=== PATIENT | female | born 1975 | race Hispanic/Latino ===

== ENCOUNTER 2020-11-27 22:50 | Emergency (ER) | payer OTHER ==
[~2020-11-27] VITALS: Ht 154.9 cm; Wt 79.2 kg
[~2020-11-27 22:50] MED LIST: ADV500INH INH; ASPE4PAD TOP; MACR100C43 PO; METF-838 PO; NAPR-837 PO; PROAAER10 INH; PYRI1TAB5 PO; SING10TA32 PO
[2020-11-27 22:51] VITALS: BP 127/66
== END 2020-11-27 22:54 | disposition left against medical advice (07) ==
LOC: M ED 22:50
DX: Z53.21 Procedure and treatment not carried out due to patient leaving prior to being seen by health care provider (principal)

== ENCOUNTER 2020-12-13 01:42 | Emergency (ER) | payer OTHER, SELFPAY ==
[~2020-12-13] VITALS: Ht 157.5 cm; Wt 75.0 kg
[2020-12-13 01:44] VITALS: BP 127/70
[2020-12-13] MEDS ORDERED: ATROVENT INH (01:55)
[2020-12-13] MEDS ORDERED: ALBUTEROL INH (01:55)
== END 2020-12-13 02:27 | disposition left against medical advice (07) ==
LOC: M ED 01:42
DX: Z53.21 Procedure and treatment not carried out due to patient leaving prior to being seen by health care provider (principal)

== ENCOUNTER → 2021-11-28 | Outpatient (CLI) | payer OTHER ==
[~2021-11-28] MED LIST changes: +ALBUTEROL INH; +ATROVENT INH
== END ==
LOC: M WHC 06:52
PROVIDERS: ATTEND Nurse Practitioner Family
DX: Z12.31 Encounter for screening mammogram for malignant neoplasm of breast (principal); R92.2 Inconclusive mammogram

== ENCOUNTER → 2021-12-11 | Outpatient (CLI) | payer OTHER | LOC: M WHC 07:20 | PROVIDERS: ATTEND Family Medicine | DX: N63.10 Unspecified lump in the right breast, unspecified quadrant (principal); R92.8 Other abnormal and inconclusive findings on diagnostic imaging of breast | CPT/HCPCS: 76642; 77065; G0279 ==

== ENCOUNTER 2022-06-06 10:26 | Emergency (ER) | payer OTHER ==
[~2022-06-06] VITALS: Ht 154.9 cm; Wt 76.7 kg
[2022-06-06] MEDS ORDERED: SUMA100T2 PO (11:48)
[2022-06-06] MEDS ORDERED: NS 1,000 ML IV ONE (12:25)
[2022-06-06] MEDS ORDERED: KETOROLAC 30 MG/ML 1ML VIAL IV ONE (12:25)
[2022-06-06] MEDS ORDERED: METOCLOPRAMIDE INJ 10MG/2ML VIAL IV ONE (12:25)
[2022-06-06 13:01] LABS: BASO % 0.3 % (0.0-1.0); EOS # 0.4 10^3/uL (0.0-0.5); EOS % 5.7 % (0.0-3.0); HEMATOCRIT 41.4 % (36.0-47.0); HEMOGLOBIN 13.6 g/dl (12.0-15.5); LYMPH % 25.5 % (24.0-44.0); MEAN CORPUSCULAR HEMOGLOBIN 28.9 pg (27.0-33.0); MEAN CORPUSCULAR HGB CONC 32.9 g/dl (32.0-36.5); MEAN CORPUSCULAR VOLUME 88.1 fl (80.0-96.0); MONO # 0.4 10^3/uL (0.0-0.8); MONO % 5.2 % (2.0-8.0); NEUTROPHILS # 4.8 10^3/uL (1.5-8.5); NEUTROPHILS % 62.9 % (36.0-66.0); PLATELET COUNT, AUTOMATED 386 10^3/uL (150-450); WHITE BLOOD COUNT 7.7 10^3/uL (4.0-10.0)
[2022-06-06] MEDS ORDERED: ESSE250T PO ×2 (13:55→14:07)
[2022-06-06] MEDS ORDERED: SUMA25TA3 PO ×2 (13:55→14:07)
[2022-06-06 14:01] VITALS: BP 130/76
== END 2022-06-06 14:28 | disposition home or self-care (01) ==
LOC: M ED 10:26
DX: R51.9 Headache, unspecified (principal); J45.909 Unspecified asthma, uncomplicated; Z79.51 Long term (current) use of inhaled steroids; Z79.4 Long term (current) use of insulin; Z79.899 Other long term (current) drug therapy
CPT/HCPCS: 70450; 80047; 83735; 85025; 96361; 96374; 96375; 99284; J1100

== ENCOUNTER → 2022-10-09 | Outpatient (CLI) | payer OTHER ==
[~2022-10-09] MED LIST changes: +ESSE250T PO; +MONT-5 PO; -SING10TA32 PO; +SUMA100T2 PO; +SUMA25TA3 PO
== END ==
LOC: M WUC 13:18
PROVIDERS: ATTEND Student in an Organized Health Care Education/Training Program
DX: J45.41 Moderate persistent asthma with (acute) exacerbation (principal)